=== PATIENT | female | born 2000 | race Caucasian/White ===

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

== ENCOUNTER 2021-08-18 15:34 | Emergency (ER) | payer OTHER, SELFPAY ==
--- NOTE | ~2021-08-18 | XR_ITS ---
XR ankle RT min 3V DATE: 08/18/2021 15:51 INDICATION: Soccer injury 2 days ago. Lateral ankle pain TECHNIQUE: 4 views COMPARISON: None FINDINGS: There is mild to moderate lateral soft tissue swelling. No fracture or dislocation of the a nkle or disruption of the ankle mortise. No periosteal reaction or bone destruction. IMPRESSION: Lateral soft tissue swelling; no fracture or dislocation Reviewed, dictated and finalized at location A.
--- NOTE | 2021-08-18 15:37 | ED.LOWEXIN ---
HPI - Extremity Injury (Lower) General Chief Complaint: Extremity Injury, Lower Stated Complaint: rt foot injury Time Seen by Provider: 08/18/21 15:37 Source: patient Mode of arrival: ambulatory Limitations: no limitations History of Present Illness HPI Narrative: Whitley is a 21-year-old female patient presenting to the clinic today with complaints of right foot/ankle pain. She reports she injured it last Sunday when playing soccer when she collided with another person. Is able to walk on it but feels as though it is unstable. Has a lot of bruising and swelling to the lateral aspect of the ankle/foot. Related Data Home Medications Medication Instructions Recorded Confirmed No Home Medications 08/03/19 08/03/19 Allergies Allergy/AdvReac Type Severity Reaction Status Date / Time peanut Allergy Mild Verified 05/30/09 13:44 Cat Dander Allergy Mild Uncoded 05/30/09 13:44 Dog Dander Allergy Mild Uncoded 05/30/09 13:44 NUTS Allergy Mild Uncoded 05/30/09 13:44 [place] Seed Allergy Mild Uncoded 05/30/09 13:44 TREES Allergy Mild Uncoded 05/30/09 13:44 Review of Systems Review of Systems: Pertinent positives per HPI. Patient denies any fever, chills, rash, headache, visual changes, dizziness, cough, runny nose, sore throat, shortness of breath, chest pain, palpitations, nausea, vomiting, diarrhea, constipation, abdominal pain, or any urinary issues. PMFSH Social History Social History Gender identity (if verbalized by the patient): Female Comments At the time of my signature, I reviewed and agree with the nursing past medical, surgical, social, and family history. There is no relevant family history pertinent to the patient complaint. Exam Narrative: General: Well-developed, well nourished, in no apparent distress Head: Normocephalic, atraumatic. Cardio: Regular rate and rhythm, s1 and s2 normal, no murmur appreciated. Resp: Clear to auscultation bilaterally, no rhonchi, rales, wheezing or rubs. Musculoskeletal: No deformity, swelling and bruising noted to the right lateral ankle and foot, tender to palpation over the right lateral ankle, pain with inversion of right foot as well as plantar flexion against resistance, no pain with dorsiflexion of the right foot, limited range of motion due to pain, muscle strength strong and equal, peripheral pulse strong, no cyanosis, limping gait and station Course Course Emergency Course: Portions of this record may have been created with voice recognition software. Level of Care: Express Care Visit Vital Signs Vital signs: Vital signs reviewed MDM - Extremity Injury (Lower) MDM Narrative Medical decision making narrative: At the time of visit patient is resting comfortably on the exam table. Has swelling and old bruising to the lateral right ankle. Is able to walk on it however she feels as though it is unstable. X-ray was completed and was negative for fracture or malalignment. I suspect a tendon strain versus partial tendon tear. Differential Diagnosis Differential diagnosis: Likely ankle sprain and strain Imaging Data Attestation: I personally reviewed and interpreted this imaging study as follows: My impression: Negative for fracture or malalignment of the right ankle Radiologist's impression: Express Care [address] [phone] XRay ReportSigned Patient: Whitley Hernandez NDOB: 2000MR#: [id number]/Sex: 21 / FAcct:[id number]: EXPTR ADM Date: 08/18/21Attending Dr: Ordering Physician: Francis Gallagher APRN Date of Service: 08/18/21 Procedure(s): XR ankle RT min 3V Accession Number(s): [id number] cc: Francis Gallagher APRN; UNKNOWN,DOCTOR~ XR ankle RT min 3V DATE: 08/18/2021 15:51 INDICATION: Soccer injury 2 days ago. Lateral ankle pain TECHNIQUE: 4 views COMPARISON: None FINDINGS: There is mild to moderate lateral sof
[2021-08-18 15:51] VITALS: BP 91/51; PULSE 68; RESP 18; TEMP 37.1; O2SAT 100
== END 2021-08-18 16:05 | disposition home or self-care (01) ==
PROVIDERS: Emergency Provider Nurse Practitioner Family
DX: S93.401A Sprain of unspecified ligament of right ankle, initial encounter (principal); S96.911A Strain of unspecified muscle and tendon at ankle and foot level, right foot, initial encounter; W51.XXXA Accidental striking against or bumped into by another person, initial encounter; Y93.66 Activity, soccer
CPT/HCPCS: 73610; 99213; G0463